=== PATIENT | female | born 1980 | race Caucasian/White ===

== ENCOUNTER 2019-07-25 06:08 | Emergency (ER) | payer SELFPAY ==
[~2019-07-25] VITALS: Ht 147.3 cm; Wt 61.2 kg
[~2019-07-25 06:08] MED LIST: BACTRIM DS TAB1 EACH PO; CHANTIX1 MG PO; CLINDAMYCIN HC150 MG PO; DICLOFENAC SODI75 MG PO; DOXYCYCLINE HY100 MG PO; KEFLEX500 MG PO; LORTAB 5-325 M1 EACH PO; NORCO 5-325 TA1 EACH PO; PENICILLIN V P500 MG PO; TRAMADOL HCL50 MG PO
--- OUTSIDE RECORDS SUMMARY | 2019-07-25 08:36 | XMS ---
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 Care History Medical/Surgical 05/16/2018 [facility] - Patient is currently established with [facility]. If patient is seen in the ED during business hours. Please contact [facility] at [facility]. Care Recommendation: This patient has had 5 or more Emergency Department visits in the last 12 months.\T\nbsp; Patient requires education on the scope and purpose of the ED as an acute care provider not a Primary Care Provider and should not be utilized for chronic conditions.\T\nbsp; These are guidelines and the provider should exercise clinical judgment when providing care. E.D. VISIT COUNT (12 MO.) 2 [facility] TOTAL 2 NOTE: Visits indicate total known visits. ED/UCC VISIT TRACKING (12 MO.) 07/25/2019 06:08 [facility] [place] TYPE: Emergency COMPLAINT: - ABD PAIN 04/27/2019 17:13 [facility] [place] TYPE: Emergency COMPLAINT: - RIGHT SIDE ABD PAIN DIAGNOSES: - Urinary tract infection, site not specified - Nicotine dependence, unspecified, uncomplicated - Right lower quadrant pain INPATIENT VISIT TRACKING (12 MO.) No inpatient visits to display in this time frame [email or web address]
[2019-07-25] MEDS ORDERED: DOXYCYCLINE HY100 MG PO (09:42)
[2019-07-25] MEDS ORDERED: NORCO 5-325 TA1 EACH PO (09:42)
== END 2019-07-25 10:01 | disposition home or self-care (01) ==
LOC: ED 06:08
DX: N73.0 Acute parametritis and pelvic cellulitis (principal); N70.91 Salpingitis, unspecified; A59.9 Trichomoniasis, unspecified; J45.909 Unspecified asthma, uncomplicated; F17.200 Nicotine dependence, unspecified, uncomplicated
CPT/HCPCS: 76830; 76856; 80053; 81001; 83690; 84703; 85025; 87491; 87591; 99284-25; J0696; J1885; J2270

== ENCOUNTER 2024-04-16 14:19 | Emergency (ER) | payer OTHER ==
[~2024-04-16] VITALS: Ht 147.3 cm; Wt 63.8 kg
[2024-04-16 16:01] LABS: BASOPHILS 0.6 % (0-2); HEMOGLOBIN 14.9 g/dL (12.0-18.0); LYMPHOCYTES 26.4 % (24-44); MCH 31.1 (27-36); MCHC 33.8 g/dl (30-36); MCV 91.9 fl (81-99); MONOCYTES 5.6 % (0-12); NEUTROPHILS 64.4 % (39-80); PLATELET COUNT 434 K/uL (140-440); RBC 4.78 M/ul (4.3-5.7)
[2024-04-16 16:17] LABS: PARTIAL THROMBOPLASTIN TIME 27.2 Sec (22.9-41.3)
[2024-04-16 16:18] LABS: INR 0.93 (0.80-1.30); PROTIME 11.8 Sec (11.2-14.2)
[2024-04-16 16:20] LABS: ALBUMIN 3.9 g/dL (3.4-5.0); ALBUMIN/GLOBULIN RATIO 1.22 (1.1-2.4); ANION GAP 13.4 (7-21); BILIRUBIN, TOTAL 0.2 ng/dL (0.2-1.0); BUN/CREATININE RATIO 23.59 (6.0-28.6); CALCIUM 9.2 mg/dL (8.5-10.1); CREATININE, SERUM 0.89 mg/dL (0.55-1.02); POTASSIUM 3.4 mmol/L (3.5-5.1); PROTEIN, TOTAL 7.1 g/dL (6.4-8.2)
[2024-04-16 16:43] LABS: ABO A; ANTIBODY SCREEN NEGATIVE; RH POSITIVE
[2024-04-16 17:05] VITALS: BP 131/80
== END 2024-04-16 17:05 | disposition left against medical advice (07) ==
LOC: ED 14:19
PROVIDERS: Emergency Medicine
DX: K62.5 Hemorrhage of anus and rectum (principal); J45.909 Unspecified asthma, uncomplicated; F17.200 Nicotine dependence, unspecified, uncomplicated
CPT/HCPCS: 36415; 80053; 84703; 85025; 85610; 85730; 86850; 86900; 86901

== ENCOUNTER 2025-05-04 21:08 | Emergency (ER) | payer OTHER ==
[~2025-05-04] VITALS: Ht 147.3 cm; Wt 70.0 kg
[2025-05-04] MEDS ORDERED: DIPHTH,PERTUSS(ACELL),TET VAC 0.5 ML SYRINGE IM ONE (22:00)
[2025-05-04] MEDS ORDERED: OXYCODONE/APAP 5/325 TAB PO ONE (22:00)
[2025-05-04] MEDS ORDERED: CEPHALEXIN MONOHYDRATE 500 MG HOME.PACK PO ONE (23:30)
[2025-05-04] MEDS ORDERED: HYDROCODONE BIT/ACETAMINOPHEN 5/325 MG 1 TAB HOME.PACK PO ONE (23:30)
[2025-05-04] MEDS ORDERED: CEPHALEXIN500 M1 PO (23:33)
[2025-05-04 23:51] VITALS: BP 141/94
== END 2025-05-04 23:57 | disposition home or self-care (01) ==
LOC: ED 21:08
DX: S61.211A Laceration without foreign body of left index finger without damage to nail, initial encounter (principal); F17.200 Nicotine dependence, unspecified, uncomplicated; Z23 Encounter for immunization; Z88.5 Allergy status to narcotic agent; W26.8XXA Contact with other sharp object(s), not elsewhere classified, initial encounter
CPT/HCPCS: 12002; 90471; 90715; 99282-25; A9270